=== PATIENT | male | born 1955 | race Caucasian/White ===

== ENCOUNTER 2019-10-28 13:58 | Inpatient (IN) | payer MEDICARE, OTHER, SELFPAY ==
[2019-10-28] VITALS (7 sets, daily range): BP systolic 105–138; BP diastolic 75–96; PULSE 85–102; RESP 16–20; TEMP 36.7; O2SAT 94–97; BMI 22.6
--- NOTE | 2019-10-28 14:50 | USCV_ITS ---
David Araujo Age: 63 Gender: M : 1955 Exam Date: 10/28/2019 14:48 Ordering Phys: David Veronica MD Technologist: Tomasa Bernardo [place] [facility] [place]: R/O DVT HISTORY: HISTORY OF UPPER EXTREMITY DVT PROCEDURES: Venous duplex imaging was performed in only the left lower extremity. The following venous structures were evaluated: common femoral vein, profunda vein, proximal portion of the greater saphenous vein, superficial femoral vein, and the popliteal vein. In addition, the posterior tibial and peroneal trunk were evaluated. Serial compression, augmentation maneuvers, and spectral Doppler flow evaluation were performed. FINDINGS: Extensive clot noted throughout entire left deep venous system. Deep vein thrombosis is noted in the left common femoral vein, proximal femoral vein, mid femoral vein, distal femoral vein, popliteal vein, peroneal vein, and postibial veins. Superficial vein thrombosis is also noted in the GSV extending from the groin to the ankle. Right common femoral vein was imaged as well and appears free of clot at this time. There is subcutaneous left lower extremity edema noted. CONCLUSIONS There is evidence of acute left lower extremity deep venous thrombosis. No DVT right cfv. Dr. Shannan Sena DO (Electronically Signed) Final Date: 28 October 2019 15:43 S
[2019-10-28 15:03] LABS: INR 1.11 (0.8-1.2); Partial Thromboplastin Time 33.8 SECONDS (23.9-36.7)
--- NOTE | 2019-10-28 15:29 | ED_ITS ---
Entered by Rika Anderson, acting as scribe for David Veronica MD Oct 28, 2019 13:58 HPI - Extremity Problem General: Chief complaint: Extremity Problem,Nontraumatic Stated complaint: Poss blood clot in leg Time Seen by Provider: 10/28/19 15:28 Source: patient Mode of arrival: wheelchair Limitations: no limitations History of Present Illness: HPI Narrative: 63 yo Male presents to ED with complaint of pain in left leg from groin to foot. Pt states that he has had leg swelling for a couple of weeks but the swelling got really bad on Sunday. Pt states that he has had blood clots before in his arm in early 2018. Pt states that he is not on blood thinners now but was for 6 months following his previous blood clot. Pt denies any shortness of breath at this time. Complaint: extremity pain and extremity swelling Onset (ago): week(s) Pain Consistency: constant Location: left and lower extremity Severity scale (1-10): 10 Quality: constant Radiation: none Relieving factors: nothing Exacerbating factors: range of motion, weight bearing, walking and exertion Associated symptoms: Reports no associated symptoms; Deny chest pain, fever(s) or rash Review of Systems Const: Denies: fever, chills, body aches or change in appetite Eyes: Denies: blurry vision or eye discomfort ENMT: Denies: throat pain or dental pain Card: Denies: chest pain Resp: Denies: shortness of breath GI: Denies: abdominal pain, nausea, vomiting or diarrhea : Denies: painful urination Musc: Reports: extremity pain and extremity swelling; Denies: neck pain or back pain Skin/Breast: Reports: redness; Denies: rash Neuro: Denies: headache Psych: Denies: depression José/Lymph: Denies: easy bruising All/Imm: Denies: hives PFSH ED PFSH: Statuses (acute, chronic, etc) shown below reflect problem list status as previously entered and may not be historically accurate Medical History (Updated 10/28/19 @ 17:58 by Harrison Contreras MD) Alcohol abuse (Acute) Deep vein thrombosis, upper right extremity (Acute) DVT (deep venous thrombosis) (Acute) Family History (Updated 10/28/19 @ 17:58 by Harrison Contreras MD) Other Cancer Social History (Updated 10/28/19 @ 17:58 by Harrison Contreras MD) Smoking and tobacco status: former smoker Alcohol intake: current Substance/Drug Use: never Physical Exam Const: COMMON NORMALS: no apparent distress, oriented x3 and healthy appearing HENMT: COMMON NORMALS: normocephalic and head/scalp atraumatic HEAD & SCALP: normocephalic and atraumatic Eye: COMMON NORMALS: PERRL and EOMs intact bilaterally PUPIL: Yes PERRL Neck/C-Spine: COMMON NORMALS: full ROM and supple Chest: COMMONS NORMALS: inspection of chest normal and palpation of chest normal Resp: COMMON NORMALS: normal respiratory effort, no retractions, no use of accessory muscles and clear to auscultation bilaterally AUSCULTATION: clear to auscultation bilaterally Cardio: COMMON NORMALS: regular rate, regular rhythm and no murmurs RATE: regular rate RHYTHM: regular rhythm GI: COMMON NORMALS: normal to inspection, nondistended, normoactive bowel sounds, soft to palpation, non-tender and no masses PALPATION: Yes soft Extremity: COMMON NORMALS: full ROM OTHER: large left lower leg swollen, pulses palpable Neuro: COMMON NORMALS: oriented x3, moves all extremities and no focal motor deficits Psych: COMMON NORMALS: mental status grossly normal, thought process normal and cooperative THOUGHT PROCESS: normal thought process Skin: COMMON NORMALS: no rashes or lesions noted and no wounds GENERAL SKIN EXAM: no rashes or lesions noted Course Vital Signs: Vital signs: Vital Signs Temperature 98.0 F 10/28/19 14:16 Pulse Rate 102 H 10/28/19 14:16 Respiratory Rate 16 10/28/19 17:26 Blood Pressure 127/82 10/28/19 14:16 Pulse Oximetry 95 10/28/19 14:16 MDM - Extremity (Nontraumatic) MDM Narrative: Medical decision making narrative: Patient presents here with left leg swelling with a DVT. Ultrasound shows extensive clot burden in the leg. He has no shortness of breath or signs of pulmonary was not. Spoke to hospitalist and will admit and start on Lovenox. Lab Data: Labs: Lab Results 10/28/19 10/28/19 10/28/19 Range/Units 14:30 14:30 14:30 WBC 9.2 (4.0-10.0) 10^3/ uL RBC 4.43 (4.1-5.3) 10^6/u L Hgb 14.4 (11.7-16.6) g/dL Hct 43.6 (42.0-52.0) % MCV 98.4 H (80-94) fL MCH 32.5 (28.0-34.0) pg MCHC 33.0 (30.0-36.0) g/dL RDW 13.9 (12.1-15.1) % Plt Count 272 (130-400) 10^3/c mm MPV 9.1 (7.4-10.4) fL Neut % (Auto) 75.2 % Lymph % (Auto) 13.1 % Coffey % (Auto) 9.2 % Eos % (Auto) 1.6 % Baso % (Auto) 0.5 % Neut # (Auto) 6.9 (1.8-7.7) 10^3/u L Lymph # (Auto) 1.2 (0.8-4.8) 10^3/u L Coffey # (Auto) 0.8 (0.2-0.9) 10^3/u L Eos # (Auto) 0.2 (0.0-0.8) 10^3/u L Baso # (Auto) 0.1 (0.0-0.1) 10^3/u L Nucleated RBC % (a uto) 0.2 % Nucleated RBCs # 0.0 /100WBC PT 14.70 H (10.5-13.3) SECO NDS INR 1.11 (0.8-1.2) APTT 33.8 (23.9-36.7) SECO NDS Sodium 135 L (136-145) mmol/L Potassium 3.5 (3.5-5.1) mmol/L Chloride 94 L (98-107) mmol/L Carbon Dioxide 29 (22-29) mmol/L Anion Gap 15.5 (5-19) BUN 9 (8-23) mg/dL Creatinine 1.4 H (0.7-1.2) mg/dL GFR Calculation 50.9 L (90-130) mL/min Glucose 114 H (74-106) mg/dL Calcium 9.6 (8.5-10.5) mg/dL Total Bilirubin 1.0 (0.15-1.2) mg/dL AST 24 (0-40) U/L ALT 15 (0-41) U/L Alkaline Phosphata se 122 (40-130) IU/L Total Protein 7.6 (6.6-8.7) g/dL Albumin 4.0 (3.5-5.2) g/dL Globulin 3.6 (1.3-4.6) g/dL Imaging Data^: US Lower Extremity Venous: Radiologist's impression: [facility] [address] [place] [address] Ultrasound Report Signed Patient: David Araujo EUnit #: [id number] : 4Acct#:[id number] Age/Sex: 63 / MADM Date: 10/28/19 Loc: ERRoom/Bed: Attending Dr: Ordering Provider/Ordering MD: David Veronica MD Date of Service: 10/28/19 Procedure(s): [place] [address] Accession Number(s): [id number] Report Number: [id number] David Araujo Age: 63 Gender: M : 1955 Exam Date: 10/28/2019 14:48 Ordering Phys: David Veronica MD Technologist: Tomasa Bernardo Exam Location: [facility] – [place] Indication: R/O DVT HISTORY: HISTORY OF UPPER EXTREMITY DVT PROCEDURES: Venous duplex imaging was performed in only the left lower extremity. The following venous structures were evaluated: common femoral vein, profunda vein, proximal portion of the greater saphenous vein, superficial femoral vein, and the popliteal vein. In addition, the posterior tibial and peroneal trunk were evaluated. Serial compression, augmentation maneuvers, and spectral Doppler flow evaluation were performed. FINDINGS: Extensive clot noted throughout entire left deep venous system. Deep vein thrombosis is noted in the left common femoral vein, proximal femoral vein, mid femoral vein, distal femoral vein, popliteal vein, peroneal vein, and postibial veins. Superficial vein thrombosis is also noted in the GSV extending from the groin to the ankle. Right common femoral vein was imaged as well and appears free of clot at this time. There is subcutaneous left lower extremity edema noted. CONCLUSIONS There is evidence of acute left lower extremity deep venous thrombosis. No DVT right cfv. Dr. Shannan Sena DO (Electronically Signed) Final Date: 28 October 2019 15:43 S Discharge Plan Discharge Prescriptions: No Action lisinopril 40 mg tablet 40 mg PO DAILY RF: 0 Multiple Vitamins Tablet 1 tab PO DAILY RF: 0 Vitamin C 1,000 mg Tablet 500 mg PO DAILY RF: 0 iron 325 mg (65 mg iron) Tablet 325 mg PO DAILY RF: 0 vitamin B complex Tablet 1 tab PO DAILY RF: 0 metoprolol succinate 25 mg Tablet Extended Release 24 Hr 25 mg PO DAILY RF: 0 Probiotic 1 cap PO DAILY RF: 0 magnesium 1 tab PO DAILY RF: 0 Coding Level of Care Code ED Software Installer for Chg Fwd Exam Problem Focused The documentation recorded by the Justin rader Carmen, accurately reflects the service I personally performed and the decisions made by Glenys adame Korby, MD Oct 28, 2019 13:58
--- NOTE | 2019-10-28 16:12 | CTR_ITS ---
PROCEDURE INFORMATION: Exam: CT Angiography Chest With Contrast Exam date and time: 10/28/2019 5:11 PM Age: 63 years old Clinical indication: Nausea and vomiting; Shortness of breath; Additional info: Pe rule out TECHNIQUE: Imaging protocol: Computed tomographic angiography of the chest with intravenous contrast. 3D rendering: MIP and/or 3D reconstructed images were created by the technologist. Total DLP: 1269.97 mGy-cm Radiation optimization: All CT scans at this facility use at least one of these dose optimization techniques: automated exposure control; mA and/or kV adjustment per patient size (includes targeted exams where dose is matched to clinical indication); or iterative reconstruction. Contrast material: VISI 320; Contrast volume: 95 ml; Contrast route: LEFT WRIST; COMPARISON: CR Chest 1 [place] [id number] 01/22/2019 2:56 PM FINDINGS: Pulmonary arteries: There is no pulmonary embolus. Aorta: [id number] atherosclerotic changes are noted in the aorta. There is no aneurysm or dissection. Lungs: There are severe emphysematous changes. Mild right basilar pneumonitis and volume loss is noted. There is a tree-in-bud appearance at the right costophrenic angle with poorly defined rounded nodular density at the right costophrenic angle that may be a small pneumonic infiltrate given the adjacent pneumonitis measuring 1.2 cm in size. Pleural space: Unremarkable. No pneumothorax. No pleural effusion. Heart: Unremarkable. No cardiomegaly. No pericardial effusion. Mediastinum: There is a small hiatal hernia. The wall of the distal esophagus is thickened/edematous concerning for esophagitis or possibly distal esophageal neoplasm. There is an adjacent subcentimeter lymph node image 11 that measures 7 mm in short axis. No pathologic adenopathy in the upper abdomen. Lymph nodes: See Mediastinum Finding. Bones/joints: Unremarkable. No acute fracture. Soft tissues: Unremarkable. Other findings: There is a normal-variant cavum septum pellucidum. IMPRESSION: 1. Pneumonitis right lung base. There is a nodular density at the right costophrenic angle suspected to be a small area of pneumonitis or rounded infiltrate. Follow-up chest CT in 3 months is recommended. 2. There is no pulmonary embolus. DVT is identified in the inferior vena cava. See report below. 3. Abnormal wall thickening in the distal esophagus may reflect esophagitis or incidental esophageal neoplasm with adjacent lymph node. PROCEDURE INFORMATION: Exam: CT Abdomen And Pelvis With Contrast Exam date and time: 10/28/2019 5:11 PM Age: 63 years old Clinical indication: Nausea and vomiting; Shortness of breath; Additional info: Pe rule out TECHNIQUE: Imaging protocol: Computed tomography of the abdomen and pelvis with intravenous contrast. Total DLP: 1269.97 mGy-cm Radiation optimization: All CT scans at this facility use at least one of these dose optimization techniques: automated exposure control; mA and/or kV adjustment per patient size (includes targeted exams where dose is matched to clinical indication); or iterative reconstruction. Contrast material: VISI 320; Contrast volume: 95 ml; Contrast route: LEFT WRIST; COMPARISON: CR Chest 1 [place] [id number] 01/22/2019 2:56 PM FINDINGS: Liver: Unremarkable.No mass. Gallbladder and bile ducts: Normal. No calcified stones. No ductal dilation. Pancreas: Normal. No ductal dilation. Spleen: Normal. No splenomegaly. Adrenals: Normal. No mass. Kidneys and ureters: Normal. No hydronephrosis. Stomach and bowel: Unremarkable. No obstruction. No mucosal thickening. Appendix: A normal appendix is identified. Intraperitoneal space: Unremarkable. No free air. No significant fluid collection. Vasculature: See Soft Tissues Finding. Lymph nodes: Unremarkable.No enlarged lymph nodes. Bladder: There is nonspecific bladder wall thickening. This may be related to incomplete distention. Reproductive: Unremarkable as visualized. Bones/joints: Diffuse degenerative changes. Severe endplate degenerative changes are noted at L2-L3. Probable old fracture deformity of the superior endplate of L5. No acute fracture. Soft tissues: There is diffuse edema of the subcutaneous fat and muscles of the proximal left thigh extending out of the field of view. Subtle subocclusive filling defect in the left femoral vein and left iliac vein is identified concerning for DVT. Thrombus is identified in the inferior vena cava at ending just distal to the renal veins. CT/CT angio chest w abd pel w con IMPRESSION: 1. DVT in the left femoral, left common iliac veins and inferior vena cava. No pulmonary embolus. There is diffuse edema of the soft tissues and muscles of the left thigh. 2. Otherwise no acute abnormality in the abdomen or pelvis. No ileus or obstruction. No inflammatory changes. Radiation Dose CTDIVOL = (mGy): DLP = 1269.97~1269.97 (mGy-cm)
[2019-10-28 16:21] LABS: Basophils # 0.1 10^3/uL (0.0-0.1); Basophils % 0.5 %; Eosinophils # 0.2 10^3/uL (0.0-0.8); Eosinophils % 1.6 %; Hematocrit 43.6 % (42.0-52.0); Hemoglobin 14.4 g/dL (11.7-16.6); Lymphocytes # 1.2 10^3/uL (0.8-4.8); Lymphocytes % 13.1 %; Mean Corpuscular Hemoglobin 32.5 pg (28.0-34.0); Mean Corpuscular Volume 98.4 fL (80-94); Mean Platelet Volume 9.1 fL (7.4-10.4); Monocytes # 0.8 10^3/uL (0.2-0.9); Monocytes % 9.2 %; Neutrophils # 6.9 10^3/uL (1.8-7.7); Neutrophils % 75.2 %; Nucleated Red Blood Cells % 0.2 %; Platelet Count 272 10^3/cmm (130-400); Red Blood Count 4.43 10^6/uL (4.1-5.3); Red Cell Distribution Width 13.9 % (12.1-15.1); White Blood Count 9.2 10^3/uL (4.0-10.0)
[2019-10-28 16:24] LABS: Alanine Aminotransferase 15 U/L (0-41); Alkaline Phosphatase 122 IU/L (40-130); Anion Gap 15.5 (5-19); Aspartate Amino Transferase 24 U/L (0-40); Blood Urea Nitrogen 9 mg/dL (8-23); Calcium 9.6 mg/dL (8.5-10.5); Carbon Dioxide 29 mmol/L (22-29); Chloride 94 mmol/L (98-107); Globulin 3.6 g/dL (1.3-4.6); Glomerular Filtration Rate 50.9 mL/min (90-130); Glucose 114 mg/dL (74-106); Potassium 3.5 mmol/L (3.5-5.1); Sodium 135 mmol/L (136-145); Total Protein 7.6 g/dL (6.6-8.7)
[2019-10-28] MEDS: enoxaparin 80 mg/0.8 mL Syringe 70 MG SUBCUT (16:40)
[2019-10-28] MEDS: iodixanol 320 mg/mL 100mL Btl 95 ML IV (17:39)
--- NOTE | 2019-10-28 17:49 | P.HP_ITS ---
Providers/Chief Complaint Primary Care Provider: Hugh Ahmadi, DIMAS-C Chief Complaint: Poss blood clot in leg History of Present Illness David Araujo is a 63 year old male with past medical history of alcohol abuse, right upper limb DVT for which he was on Eliquis 10 August, hypertension presents to the ER today from his primary care practitioner's office with complaint of increasing swelling in his leg for last 1 week. Javan mcguire presented to his PCPs office because of extreme pain which is increased for last 1 day. Patient denies of having any fever, nausea, vomiting, change in bowel movements, loss of weight, headache. Patient states he has been having alternate diarrhea and constipation for many years. He had a colonoscopy in August 2019 which was reported normal. Patient denies of having any constitutional symptoms of shortness of breath, cough, orthopnea, PND, palpitations, chest pain. He denies of having any bleeding from his mouth, epistaxis, hematuria, hematemesis or melena. In the ER patient had lower limb Dopplers which was suggestive of extensive DVT in his left leg so hospital service was called. Review of Systems Const: Denies: fever, chills, body aches, change in appetite, malaise, night sweats, diaphoresis, change in sleep pattern, daytime sleepiness or snoring Eyes: Denies: change in vision, blurry vision, photophobia, eye discomfort or eye discharge ENMT: Denies: throat pain, enlarged tonsils, hoarseness, mouth pain, oral sores/lesions, dry mouth, tinnitus, nasal congestion or post nasal drip Card: Denies: chest pain, palpitations, irregular heart rhythm, edema, swelling of feet/ankles, lightheadedness, syncope, pre-syncope, shortness of breath on exertion, shortness of breath when lying down, leg pain with exertion or bluish discoloration of hands/feet Resp: Denies: shortness of breath, productive cough, non-productive cough, wheezing, stridor, pain on inspiration, change in phlegm color, coughing up blood or chest congestion GI: Reports: diarrhea and constipation; Denies: abdominal pain, nausea, vomiting, vomiting blood, coffee grounds in vomit, difficulty swallowing, heartburn/indigestion, bloating, cramping, change in bowel habits, painful bowel movements, blood in stool or black tarry stool : Denies: flank pain, difficulty urinating, painful urination, urinary frequency, urinary urgency, urinary hesitancy, urinary dribbling, difficulty starting urination, change in urine stream, nighttime urination or blood in urine Musc: Denies: neck pain, back pain, extremity pain, joint pain, joint swelling, redness, joint stiffness or limited range of motion Neuro: Denies: headache, numbness in extremities, weakness in extremities, changes in sensation, lack of coordination, difficulty walking, frequent falls, dizziness, vertigo, confusion, slurred speech, difficulty communicating thoughts or seizure-like activity Psych: Denies: anxiety, depression, mood swings, panic attacks, hopelessness or irritability Endo: Denies: excessive urination, excessive thirst, tired all the time, cold intolerance, excessive sweating, flushing or heat intolerance José/Lymph: Denies: easy bruising or easy bleeding All/Imm: Denies: tongue swelling, facial swelling or acute wheezing Medications/Allergies Home Medications Medication Instructions Recorded Confirmed Last Taken Type Probiotic 1 cap PO DAILY 10/28/19 10/28/19 10/28/19 History ascorbic acid (vitamin C) [Vitamin 500 mg PO DAILY 10/28/19 10/28/19 10/28/19 History C] iron 325 mg PO DAILY 10/28/19 10/28/19 10/28/19 History magnesium 1 tab PO DAILY 10/28/19 10/28/19 10/28/19 History metoprolol succinate 25 mg PO DAILY 10/28/19 10/28/19 10/28/19 History multivitamin [Multiple Vitamins] 1 tab PO DAILY 10/28/19 10/28/19 10/27/19 History vitamin B complex 1 tab PO DAILY 10/28/19 10/28/19 Unknown History Allergies Allergy/AdvReac Type Severity Reaction Status Date / Time No Known Allergies Allergy Verified 10/28/19 13:27 PFSH Acute PFSH: Statuses (acute, chronic, etc) shown below reflect problem list status as previously entered and may not be historically accurate Medical History (Updated 10/28/19 @ 17:58 by Harrison Contreras MD) Alcohol abuse (Acute) Deep vein thrombosis, upper right extremity (Acute) DVT (deep venous thrombosis) (Acute) Family History (Updated 10/28/19 @ 17:58 by Harrison Contreras MD) Other Cancer Social History (Updated 10/28/19 @ 17:58 by Harrison Contreras MD) Smoking and tobacco status: former smoker Alcohol intake: current Substance/Drug Use: never Vitals/I&O/Wt Last Vital Signs Temp 98.0 F 10/28/19 14:16 Pulse 102 H 10/28/19 14:16 Resp 16 10/28/19 17:26 BP 127/82 10/28/19 14:16 Pulse Ox 95 10/28/19 14:16 Weight last 48 hrs Weight 73.482 kg Physical Exam Narrative: EXAM NARRATIVE: General: No acute distress, AO x3 HEENT: PERRLA, pupils bilaterally equal and reactive Chest: Normal vesicular breath sounds, no added sounds, equal good air entry bilaterally CVS: S1-S2 regular, no murmurs, no tachycardia, no gallops, no rubs Abdomen: Soft, nontender, no organomegaly, bowel sounds present Neuro: No focal deficits, no facial deformity, AO x3, power 5/5 in all limbs CIWA score: 1 Extremities: Left leg edema 2+ present up to thigh, peripheral pulses present, right leg peripheral pulses palpable. Data : 10/28/19 14:30 10/28/19 14:30 A&P Assessment and plan (1) Left leg DVT: Status: Acute Code(s): I82.402 - Acute embolism and thrombosis of unspecified deep veins of left lower extremity Additional A&P Information Left leg DVT: Patient is found to have extensive DVT in his left leg. Start patient on Lovenox 1 mg/kg body weight as per the renal functions. We will switch patient to Eliquis from tomorrow morning at 10 mg twice daily for for 7 days followed by 5 mg twice daily. As this is second unprovoked DVT patient would most likely need to be on Eliquis for life. Patient denies of having any immobilization or constitutional symptoms but will have to rule out cancer. Will do CT chest, abdominal pelvis. GLYNN: Baseline creatinine seems to be around 1. Creatinine today 1.4. Most likely due to dehydration. IV hydration with NS at 75 cc/h. History of daily alcohol intake: We will start patient on Ativan low-dose as per CIWA protocol. Will monitor for alcohol withdrawal. Hypertension: Continue on home medications are lisinopril and metoprolol. We will continue to monitor blood pressures. Cardiac diet. Lovenox will help with DVT prophylaxis as well. Full code Attestations Medical Necessity Statement*: Admission for most likely less than 2 midnights for left leg DVT Time Spent in Patient Care: 16 - 35 minutes Coding Level of Care Code Acute Facilities Assistant for [facility] Diagnoses Left leg DVT I82.402
[2019-10-28] MEDS: sodium chloride 0.9% 1,000 ML 75 ML IV (18:00)
--- NOTE | 2019-10-28 19:20 | PC.NURSE ---
Introduced self to patient and initiated vital signs. Pt is A&O x 4 and agreeable. Pt states that the reason for the ER visit today is due to blood clot in left leg. Pt also complaining of pain in left leg and heartburn . Reassured patient of needs and will continue to monitor.
--- NOTE | 2019-10-28 20:59 | PC.NURSE ---
Report called to
[2019-10-28 22:57] LABS: Estmated Average Glucose 88; Hemoglobin A1C 4.7 % (4.0-6.0)
[2019-10-28 23:11] LABS: NT Pro B Type Natriuretic Pept 482 pg/mL (0-125)
[2019-10-29] VITALS: BP 115/75; PULSE 84; RESP 16; TEMP 36.8; O2SAT 94
[2019-10-29 00:01] VITALS: O2SAT 96
[2019-10-29 00:57] LABS: Iron 240 ug/dL (59-158); Percent Saturation 77.6 % (20-50); Total Iron Binding Capacity 309 mcg/dl; Unsaturated Iron Binding 69 ug/dL (112-347)
[2019-10-29] MEDS: acetaminophen 325 mg Tablet 650 MG PO (02:01)
[2019-10-29 04:00] VITALS: BP 115/72; PULSE 70; RESP 20; TEMP 36.8; O2SAT 96
[2019-10-29 05:29] LABS: INR 1.21 (0.8-1.2)
[2019-10-29 05:30] LABS: Basophils % 0.7 %; Eosinophils # 0.2 10^3/uL (0.0-0.8); Eosinophils % 3.1 %; Hemoglobin 12.7 g/dL (11.7-16.6); Lymphocytes # 1.5 10^3/uL (0.8-4.8); Lymphocytes % 24.7 %; Mean Corpuscular HGB Conc 33.4 g/dL (30.0-36.0); Mean Corpuscular Hemoglobin 33.8 pg (28.0-34.0); Mean Corpuscular Volume 101.1 fL (80-94); Mean Platelet Volume 9.1 fL (7.4-10.4); Monocytes # 0.8 10^3/uL (0.2-0.9); Monocytes % 12.4 %; Neutrophils # 3.6 10^3/uL (1.8-7.7); Neutrophils % 58.8 %; Nucleated Red Blood Cells % 0 %; Platelet Count 200 10^3/cmm (130-400); Red Blood Count 3.76 10^6/uL (4.1-5.3); Red Cell Distribution Width 13.9 % (12.1-15.1); White Blood Count 6.1 10^3/uL (4.0-10.0)
[2019-10-29 05:37] LABS: Alanine Aminotransferase 10 U/L (0-41); Albumin Level 2.9 g/dL (3.5-5.2); Alkaline Phosphatase 97 IU/L (40-130); Anion Gap 12.5 (5-19); Aspartate Amino Transferase 20 U/L (0-40); Blood Urea Nitrogen 10 mg/dL (8-23); Calcium 8.8 mg/dL (8.5-10.5); Carbon Dioxide 28 mmol/L (22-29); Chloride 97 mmol/L (98-107); Globulin 3.1 g/dL (1.3-4.6); Glomerular Filtration Rate 55.4 mL/min (90-130); Glucose 97 mg/dL (74-106); Potassium 3.5 mmol/L (3.5-5.1); Sodium 134 mmol/L (136-145); Total Bilirubin 1.1 mg/dL (0.15-1.2)
[2019-10-29 06:21] LABS: Prostate Specific Antigen 0.49 ng/mL (0-4)
[2019-10-29 06:25] LABS: CA 125 36.4 U/mL (0-35)
[2019-10-29 06:32] LABS: Chol HDL Ratio 2.09 mg/dL (1.0-5.00); Cholesterol 111 mg/dL (0-200); HDL Cholesterol 53 mg/dL (60-100); LDL Cholesterol Calculated 46 mg/dL (50-129); LDL HDL Ratio 0.87 RATIO (0.00-3.22); Triglycerides 61 mg/dL (0-150)
[2019-10-29 07:02] LABS: Carcinoembryonic Antigen 1.4 ng/mL (0.0-4.7)
[2019-10-29 07:29] VITALS: BP 94/57; PULSE 65; RESP 16; TEMP 36.7; O2SAT 96
[2019-10-29] MEDS: ferrous sulfate EC 325 mg Tablet PO (09:37)
[2019-10-29] MEDS: folic acid 1 mg Tablet PO (09:37)
[2019-10-29] MEDS: ascorbic acid 500 mg Tablet PO (09:37)
[2019-10-29] MEDS: multivitamin therapeutic Tablet 1 TAB PO (09:37)
[2019-10-29] MEDS: thiamine 100 mg Tablet PO (09:37)
[2019-10-29] MEDS: enoxaparin 100 mg/mL Syringe 70 MG SUBCUT (09:39)
[2019-10-29 11:07] VITALS: BP 115/72; PULSE 75; RESP 18; TEMP 36.8; O2SAT 96
--- NOTE | 2019-10-29 11:54 | P.DS_ITS ---
Discharge Providers Date of Admission: 10/28/19 16:12 Date of Discharge: 10/29/19 Attending Provider at Admission: Harrison Contreras MD Attending Provider at Discharge: Harrison Contreras MD Primary Care Provider: LAUREEN Singh Diagnoses at Discharge Discharge Diagnosis (1) Left leg DVT: Status: Acute Reason for Visit Reason for Visit: Reason For Visit: Poss blood clot in leg Hospital Course Discharge Summary: David Araujo is a 63 year old male with past medical history of alcohol abuse, right upper limb DVT for which he was on Eliquis 10 August, hypertension presents to the ER today from his primary care practitioner's office with complaint of increasing swelling in his leg for last 1 week. In the ER lower limb Doppler showed that he had an extensive DVT in the left leg. Due to recurrence of DVT CT abdomen pelvis and chest were done to r ule out cancer. CT chest revealed possible infiltrate in the right lower lobe which is suspicious for cancer. Patient had a colonoscopy in August 2019 which was reported normal. CEA was done which was normal PSA was normal and Ca1 25 was mildly elevated to 36.4. Patient denies of having any constitutional symptoms for now. Patient was treated with full dose Lovenox and then transitioned over to Eliquis at DVT protocol. Patient's creatinine is trending down so is being discharged at a hemodynamically stable condition to follow-up with his primary care physician in 2 weeks. Patient is also advised to repeat a CT scan of his chest in 3 months to follow-up with the possible infiltrate. Physical Exam Narrative: EXAM NARRATIVE: General: No acute distress, AO x3 HEENT: PERRLA, pupils bilaterally equal and reactive Chest: Normal vesicular breath sounds, no added sounds, equal good air entry bilaterally CVS: S1-S2 regular, no murmurs, no tachycardia, no gallops, no rubs Abdomen: Soft, nontender, no organomegaly, bowel sounds present Neuro: No focal deficits, no facial deformity, AO x3, power 5/5 in all limbs CIWA score: 1 Extremities: Left leg edema 2+ present up to thigh, peripheral pulses present, right leg peripheral pulses palpable. Discharge Data Data Completed and Pending: Completed Studies During Hospitalization Category Date Time Status CT angio chest w abd pel w con Urge nt Cat Scan 10/28/19 16:12 [place] [id number] Urgent Ultrasound 10/28/19 14:50 Completed Labs from last 24 hours 10/29/19 10/29/19 10/29/19 04:05 04:05 04:05 WBC RBC Hgb Hct MCV MCH MCHC RDW Plt Count MPV Neut % (Auto) Lymph % (Auto) [place] % (Auto) Eos % (Auto) Baso % (Auto) Neut # (Auto) Lymph # (Auto) [place] # (Auto) Eos # (Auto) Baso # (Auto) Nucleated RBC % (a uto) Nucleated RBCs # PT INR APTT Sodium 134 L Potassium 3.5 Chloride 97 L Carbon Dioxide 28 Anion Gap 12.5 BUN 10 Creatinine 1.3 H GFR Calculation 55.4 L Glucose 97 Estimat Average Gl ucose Hemoglobin A1c Calcium 8.8 Iron TIBC % Saturation Unsat Iron Binding Total Bilirubin 1.1 AST 20 ALT 10 Alkaline Phosphata se 97 NT-Pro-B Natriuret Pep Total Protein 6.0 L D Albumin 2.9 L Globulin 3.1 Triglycerides 61 Cholesterol 111 LDL Cholesterol, C alc 46 L HDL Cholesterol 53 L LDL/HDL Ratio 0.87 Cholesterol/HDL Ra evan 2.09 Carcinoembryonic A g 1.4 CA 125 Antigen 36.4 H Prostate Specific Ag 0.49 10/29/19 10/29/19 10/28/19 04:05 04:05 14:30 WBC 6.1 RBC 3.76 L Hgb 12.7 Hct 38.0 L MCV 101.1 H MCH 33.8 MCHC 33.4 RDW 13.9 Plt Count 200 MPV 9.1 Neut % (Auto) 58.8 Lymph % (Auto) 24.7 [place] % (Auto) 12.4 Eos % (Auto) 3.1 Baso % (Auto) 0.7 Neut # (Auto) 3.6 Lymph # (Auto) 1.5 [place] # (Auto) 0.8 Eos # (Auto) 0.2 Baso # (Auto) 0.0 Nucleated RBC % (a uto) 0 Nucleated RBCs # 0.0 PT 15.70 H INR 1.21 H APTT Sodium Potassium Chloride Carbon Dioxide Anion Gap BUN Creatinine GFR Calculation Glucose Estimat Average Gl ucose Hemoglobin A1c Calcium Iron 240 H TIBC 309 % Saturation 77.6 H Unsat Iron Binding 69 L Total Bilirubin AST ALT Alkaline Phosphata se NT-Pro-B Natriuret Pep 482 H Total Protein Albumin Globulin Triglycerides Cholesterol LDL Cholesterol, C alc HDL Cholesterol LDL/HDL Ratio Cholesterol/HDL Ra evan Carcinoembryonic A g CA 125 Antigen Prostate Specific Ag 10/28/19 10/28/19 10/28/19 14:30 14:30 14:30 WBC 9.2 RBC 4.43 Hgb 14.4 Hct 43.6 MCV 98.4 H MCH 32.5 MCHC 33.0 RDW 13.9 Plt Count 272 MPV 9.1 Neut % (Auto) 75.2 Lymph % (Auto) 13.1 [place] % (Auto) 9.2 Eos % (Auto) 1.6 Baso % (Auto) 0.5 Neut # (Auto) 6.9 Lymph # (Auto) 1.2 [place] # (Auto) 0.8 Eos # (Auto) 0.2 Baso # (Auto) 0.1 Nucleated RBC % (a uto) 0.2 Nucleated RBCs # 0.0 PT INR APTT Sodium 135 L Potassium 3.5 Chloride 94 L Carbon Dioxide 29 Anion Gap 15.5 BUN 9 Creatinine 1.4 H GFR Calculation 50.9 L Glucose 114 H Estimat Average Gl ucose 88 Hemoglobin A1c 4.7 Calcium 9.6 Iron TIBC % Saturation Unsat Iron Binding Total Bilirubin 1.0 AST 24 ALT 15 Alkaline Phosphata se 122 NT-Pro-B Natriuret Pep Total Protein 7.6 Albumin 4.0 Globulin 3.6 Triglycerides Cholesterol LDL Cholesterol, C alc HDL Cholesterol LDL/HDL Ratio Cholesterol/HDL Ra evan Carcinoembryonic A g CA 125 Antigen Prostate Specific Ag 10/28/19 14:30 WBC RBC Hgb Hct MCV MCH MCHC RDW Plt Count MPV Neut % (Auto) Lymph % (Auto) [place] % (Auto) Eos % (Auto) Baso % (Auto) Neut # (Auto) Lymph # (Auto) [place] # (Auto) Eos # (Auto) Baso # (Auto) Nucleated RBC % (a uto) Nucleated RBCs # PT 14.70 H INR 1.11 APTT 33.8 Sodium Potassium Chloride Carbon Dioxide Anion Gap BUN Creatinine GFR Calculation Glucose Estimat Average Gl ucose Hemoglobin A1c Calcium Iron TIBC % Saturation Unsat Iron Binding Total Bilirubin AST ALT Alkaline Phosphata se NT-Pro-B Natriuret Pep Total Protein Albumin Globulin Triglycerides Cholesterol LDL Cholesterol, C alc HDL Cholesterol LDL/HDL Ratio Cholesterol/HDL Ra evan Carcinoembryonic A g CA 125 Antigen Prostate Specific Ag Vitals: Last Vital Signs Temp 98.2 F 10/29/19 11:07 Pulse 75 10/29/19 11:07 Resp 18 10/29/19 11:07 BP 115/72 10/29/19 11:07 Pulse Ox 96 10/29/19 11:07 Discharge Plan Discharge Patient Disposition: Home, Self-Care Condition: Stable Prescriptions: New Eliquis DVT-PE Treat 30D Start 5 mg (74 tabs) tablets,dose pack See Rx Instructions .ROUTE .COMPLEX Qty: 74 RF: 0 acetaminophen 325 mg Tablet 325 mg PO Q6H PRN (Reason: pain) Qty: 20 RF: 0 Continued Multiple Vitamins Tablet 1 tab PO DAILY RF: 0 Vitamin C 1,000 mg Tablet 500 mg PO DAILY RF: 0 iron 325 mg (65 mg iron) Tablet 325 mg PO DAILY RF: 0 vitamin B complex Tablet 1 tab PO DAILY RF: 0 metoprolol succinate 25 mg Tablet Extended Release 24 Hr 25 mg PO DAILY RF: 0 Probiotic 1 cap PO DAILY RF: 0 magnesium 1 tab PO DAILY RF: 0 Discontinued lisinopril 40 mg tablet 40 mg PO DAILY RF: 0 Discharge Orders: Discharge Order (Routine); Ordered 10/29/19 Ordered By: Harrison Contreras Referrals: Hugh Ahmadi, CARDIOLOGY SPECIALIST-C [Primary Care Provider] - 2 weeks Discharge Diet: Cardiac Discharge Activity: Resume usual activity Discharge Attestations Time Spent in Discharge Care*: greater than 30 min Quality Metrics Clinical Quality Measures During this hospital stay, did patient experience: VTE Contraindication to Overlap Therapy: Overlap therapy prescribed VTE Discharge Education: Education about anticoagulant therapy/Care Notes given Coding Level of Care Code 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
--- NOTE | 2019-10-29 12:40 | PC.CHAP ---
Pastoral Care Encounter/Spiritual Assessment Type of Contact [x] Declined carrier packer visit [] Patient/Family/Request visit [] Outpatient visit [] Follow-up visit [] Physician referral [] Code/Alert [] Routine visit [] Staff referral [] Actively dying [] Patient sleeping [] Family support [] [] Out of room [] Palliative care [] [] Receiving care in room [] Pre-surgical visit [] Trauma [] Long length of stay [] ICU visit [] Other: Relational/Emotional Strength [] Patient feels connected with others/family/visitors/staff [] Distress [] Loneliness/isolation [] Abandonment Spirituality of Patient [] Person of Shilpa [] Attends Episcopalian of their Shilpa [] Believes in Prayer [] Reads Bible or Sikh materials [] There are Spiritual issues to be addressed Induction Brazer Interventions [] Prayer [] Active listening [] Non-anxious presence [] Spiritual/emotional support [] Crisis/trauma care [] Spiritual counseling [] Bereavement support [] Provided bereavement packet [] Provided Bible/devotional materials [] Provided toy/stuffed animal, coloring book to patient or family member [] Completed spiritual assessment [] Provided Communion [] Anointing/[place] [] Salvation [] Other: Impact on Illness or Injury [] Angry [] Fearful [] Anxious [] Often cries [] Exhaustion [] Unable to work [] Unable to attend latter day [] Unable to walk/stand [] Unable to read [] Unable to drive [] Unable to eat/drink [] Unable to sleep [] Unable to be with family [] Other: Summary Time spent with patient
[2019-10-29] MEDS: sodium chloride 0.9% 1,000 ML 75 ML IV (12:47)
[2019-10-29 14:41] VITALS: BP 115/72; PULSE 75; RESP 18; TEMP 36.8; O2SAT 96
== END 2019-10-29 12:30 | disposition home or self-care (01) | DRG 301 ==
LOC: ER 15:28 → MEDSURG 10-29 09:44
PROVIDERS: Admitting Provider Student in an Organized Health Care Education/Training Program; Emergency Provider Emergency Medicine; Family Provider Nurse Practitioner; PCP Nurse Practitioner; Visit Provider Student in an Organized Health Care Education/Training Program
DX: I82.412 Acute embolism and thrombosis of left femoral vein (principal); I82.432 Acute embolism and thrombosis of left popliteal vein; I10 Essential (primary) hypertension; I82.442 Acute embolism and thrombosis of left tibial vein; Z79.899 Other long term (current) drug therapy
CPT/HCPCS: 12345; 36415; 71275; 74177; 80053; 80061; 82378; 83036; 83540; 83550; 83880; 84153; 85025; 85610; 85730; 86304; 93971; 94664; 96372; 99283; J1650; J3411; J7030; Q9967

== ENCOUNTER → 2020-02-05 12:17 | Outpatient (BNVA) | payer MEDICARE, OTHER, SELFPAY | PROVIDERS: Family Provider Nurse Practitioner; PCP Nurse Practitioner; Visit Provider Nurse Practitioner | DX: I10 Essential (primary) hypertension (principal); I82.402 Acute embolism and thrombosis of unspecified deep veins of left lower extremity | CPT/HCPCS: 80053; 85025 ==

== ENCOUNTER → 2020-05-18 13:26 | Outpatient (BNVA) | payer MEDICARE, OTHER, SELFPAY | PROVIDERS: Family Provider Nurse Practitioner; PCP Nurse Practitioner; Visit Provider Nurse Practitioner | DX: R19.7 Diarrhea, unspecified (principal) | CPT/HCPCS: 80053; 81000; 85025 ==

== ENCOUNTER → 2020-05-31 15:42 | Outpatient (BNVA) | payer MEDICARE, OTHER, SELFPAY | PROVIDERS: Family Provider Nurse Practitioner; PCP Nurse Practitioner; Visit Provider Nurse Practitioner | DX: R19.7 Diarrhea, unspecified (principal) | CPT/HCPCS: 87493; 87506 ==